=== PATIENT | male | born 1950 | race Caucasian/White ===

== ENCOUNTER → 2020-10-22 | Outpatient (CLI) | payer OTHER | LOC: CAT 11:32 | PROVIDERS: ATTEND Family Medicine | DX: Z13.6 Encounter for screening for cardiovascular disorders (principal); E78.00 Pure hypercholesterolemia, unspecified; I25.10 Atherosclerotic heart disease of native coronary artery without angina pectoris ==

== ENCOUNTER 2021-05-20 07:39 | Observation (INO) | payer BC ==
[~2021-05-20] VITALS: Ht 170.2 cm; Wt 70.3 kg
[2021-05-20] VITALS (10 sets, daily range): BP systolic 97–134; BP diastolic 52–110
[2021-05-20] MEDS ORDERED: ASA81BEC PO (12:01)
[2021-05-20] MEDS ORDERED: LORAZEPAM 1 MG T1 MG PO (12:04)
[2021-05-20] MEDS ORDERED: LOVAZA1000 MG PO (12:07)
[2021-05-20 12:09] LABS: HEMATOCRIT 41.7 % (42.0-52.0); MCH 31.4 pg (26.0-34.0); MCHC 33.7 g/dL (28.0-37.0); MCV 93.1 fL (80.0-100.0); RBC 4.47 mil/uL (4.50-6.00); RDW 13.5 % (10.5-14.5); WBC 6.4 thou/uL (4.0-11.0)
[2021-05-20 12:17] LABS: CALCIUM 8.3 mg/dL (8.5-10.1); POTASSIUM 3.8 mmol/L (3.5-5.1)
--- NOTE | 2021-05-20 12:35 | EKG ---
[place] [address] [facility] [place] [address] ELECTROCARDIOGRAM REPORT Name: IRAIDA PONCE Room #: [facility]#: [id number] Admission: 05/20/21 Attend Phys: Tunde Kwok MD Discharge: Date of : 54 Report #: [id number] [facility] Test Date: 2021-05-20 Test Time: 11:07:10 Pat Name: IRAIDA PONCE Department: Room: Gender: Anatomical Embalmer: [facility] : 1950 Requested By: Tunde Kwok Order Number: [id number] : Griffin Noguera Measurements Intervals [place] Rate: 83 P: 73 NE: 141 QRS: 53 QRSD: 79 T: 57 QT: 341 QTc: 401 Interpretive Statements Sinus rhythm Low voltage, extremity leads Abnormal R-wave progression, early transition No previous ECG available for comparison Electronically Signed On 05-20-2021 12:35:19 LEGAL RECOVERY SPECIALIST by Griffin Noguera [email or web address] <ELECTRONICALLY SIGNED> By: Griffin Noguera MD, [facility] 05/20/21 1235 1107 06 Griffin Noguera MD, FACC /EPI
[2021-05-20 18:22] LABS: HEMATOCRIT 39.7 % (42.0-52.0); HEMOGLOBIN 13.6 gm/dL (14.0-18.0); MCH 31.9 pg (26.0-34.0); MCHC 34.3 g/dL (28.0-37.0); MCV 93.2 fL (80.0-100.0); RBC 4.26 mil/uL (4.50-6.00); RDW 13.9 % (10.5-14.5); WBC 6.6 thou/uL (4.0-11.0)
[2021-05-20 18:34] LABS: CALCIUM 8.6 mg/dL (8.5-10.1); CREATININE 0.9 mg/dL (0.7-1.3); POTASSIUM 3.9 mmol/L (3.5-5.1)
--- NOTE | 2021-05-20 20:15 | NUR ---
Assumed care of pt at 1710. Pt is A&0x4, VS stable and afebrile. Groin site is C/D/I, soft with no hematoma. Pt is resting in bed. Bedrest to end at 2109; production shift supervisor nurse aware. No current concerns. Continue to monitor.
[2021-05-21 03:56] VITALS: BP 94/52
--- NOTE | 2021-05-21 04:35 | NUR ---
NURSING NOTE: SHIFT SUMMARY: PT ALERT AND ORIENTED X4; MOVES ALL EXTREMITIES AND FOLLOWS COMMANDS. RIGHT GROIN SITE DRESSING, C/D/I-NO HEMATOMA NOTED. PT DENIES PAIN. UP AD JW SINCE 2099, GAIT STEADY. CURRENTLY RESTING WITH EYES CLOSED, RESP EVEN AND NON LABORED. ALL VS AND ASSESSMENTS CHARTED. WILL CONTINUE TO MONITOR.
[2021-05-21 07:45] VITALS: BP 120/65
[2021-05-21] MEDS ORDERED: EFFIENT10 MG PO ×2 (07:48→09:03)
[2021-05-21] MEDS ORDERED: ATORVASTATIN CA10 MG PO ×2 (07:48→09:03)
[2021-05-21] MEDS ORDERED: ASPIRIN325 PO (07:48)
--- NOTE | 2021-05-21 09:40 | CATHLAB ---
[facility] [address] [address] INVASIVE PROCEDURE REPORT Name: IRAIDA PONCE Room #: 209-P ADM Brian MSarika#: [id number] Admission: 05/20/21 Attend Phys: Tunde Kwok MD Discharge: Date of : 54 Report #: [id number] THIS REPORT FOR: cc: Juan Carlos Ivan MD, Neal A. MD Park, Jin S. MD ~ APPROVED REPORT Study performed: 05/20/2021 15:49:06 Patient Details Patient Status: ED Room #: The patient is a 70 year-old male Event Personnel Tunde Kwok Marine Biologist, Mihai Darling RN RN, Jose Vitale RN RN, Janice Santos RTR Mary, Kennedi Barone Monitor Procedures Performed Art Access - R femoral artery* Left Heart Cath w/or w/o Coronaries 7461275 [facility] [address] Place w/wo Plasty Single LAD 223960 ARSALAN Place w/wo Plasty Single CIRC 732660 75949 Initial Mod Sed Same Phys/QHP Gr5y 565686 67890 Mod Sed Same Phys/QHP Ea 099265 Hemostasis w/ Mynx Indication Dyspnea, Unstable angina , Positive stress test, Chest pain Risk Factors Hypercholesterolemia, Hypertension, Tobacco History () Procedure Narrative The Right Groin^ was infiltrated with 1% Lidocaine subcutaneous anesthesia. A 6F SHEATH sheath was inserted into the RFA^. Coronary angiography was performed using coronary diagnostic catheters. The right coronary system was accessed and visualized with a JR4 catheter. The left coronary system was accessed and visualized with a JL4 catheter. The left ventricle was accessed and visualized with a ANGLE PIG catheter. Left ventriculogram was performed in 30 degree projection. There was no hematoma. Intraoperative Conscious Sedation Sedation start time: 1600 Case end Time: [facility] [address] [place] [address] INVASIVE PROCEDURE REPORT Name: IRAIDA PONCE Room #: 209-P [facility].#: [id number] Admission: 05/20/21 Attend Phys: Tunde Kwok MD Discharge: Date of : 54 Report #: [id number] 1710 Fentanyl 50 mcg Versed 1 mg Fluoro Time: 14.50 minutes Dose: DAP 57417.20 cGycm2 3759 mGy Contrast Type and Amount: Omnipaque 285 ml Coronary Angiography The patient's coronary anatomy is right dominant. Diagnostic Cath Left Main Left main artery is a short segment, patent with no flow-limiting lesions. LAD There is a severe stenosis in the ostial/proximal segment, 80 to 95%. The mid and distal LAD segments are patent with no flow-limiting lesions. The distal LAD terminates at the apex. Diagonal 1 This is a small to moderate-sized caliber vessel, with mild disease in the midsegment. Circumflex There is a severe stenosis in the proximal segment, 70%. Supplies 1 obtuse marginal artery. OM1 This is a moderate-sized caliber vessel, with mild disease in the proximal segment. Divides into 2 branches. Right Coronary The RCA is a dominant vessel with minimal plaquing in the proximal and distal segments. R PDA There is a moderate-sized caliber vessel, patent with no flow-limiting lesions. The distal segment terminates around the apex. RPLV There is a moderate-sized caliber vessel, patent with no flow-limiting lesions. Left Ventriculography The left ventricle is normal in size with normal contractility. The left ventricular ejection fraction is estimated to be >55%. Left ventricular wall motion abnormalities are present. There is mild hypokinesis of the anterolateral segment. IVUS A Guide Catheter was used to engage the VISTA 6FR XB 3.5 #258113 ostium. A CIRC Interventional Guidewire was used. A Luge Wire .014 x 182CM #[id number] was used. IVUS Findings Euphora RX 2.5 x 12 #[id number] Hemodynamics [facility] [address] [place] [address] INVASIVE PROCEDURE REPORT Name: ODALYSIRAIDA Room #: 209-P ADM IN M.R.#: [id number] Admission: 05/20/21 Attend Phys: Tunde Kwok MD Discharge: Date of : 54 Report #: [id number] The aortic pressure is 124/57 mmHg with a mean of 85 mmHg. The left ventricular pressure is 119/3 mmHg with a mean of mmHg. The left ventricular end diastolic pressure is 11 mmHg. PCI Technique Lesion Percutaneous coronary intervention was performed on the Ostial/proximal LAD segment. The lesion stenosis prior to intervention was 95% with ABBY 3 flow. A VISTA 6FR XB 3.5 #381483 Guide Catheter was used to engage the LAD ostium. A Luge Wire .014 x 182CM #137052 Interventional Guidewire was used to cross the lesion. BALLOON DILATION A Balloon catheter Euphora RX 2.5 x 12 #[id number] was inserted and inflated up to 8.00atm for 13seconds. STENT DEPLOYMENT A stent RESOLUTE TOBI RX 3.0 X 15 #[id number] was inserted and inflated up to 14.00atm for 18seconds. POST STENT DEPLOYMENT BALLOON DILATION A Balloon catheter Euphora NC RX 3.0 x 12 #[id number] was inserted and inflated up to 18.00atm for 16seconds. Final angiography reveals 0 % stenosis with ABBY 3 flow. PCI Technique Lesion A VISTA 6FR XB 3.5 #789409 Guide Catheter was used to engage the CIRC ostium. A Luge Wire .014 x 182CM #120029 Interventional Guidewire was used to cross the lesion. BALLOON DILATION A Balloon catheter Euphora RX 2.5 x 12 #[id number] was inserted and inflated up to 8.00atm for 13seconds. STENT DEPLOYMENT A stent RESOLUTE TOBI RX 2.5 X 12 #[id number] was inserted and inflated up to 14.00atm for 26seconds. POST STENT DEPLOYMENT BALLOON DILATION A Balloon catheter Euphora NC RX 3.0 x 12 #[id number] was inserted and inflated up to 18.00atm for 16seconds. PCI Technique Lesion 2 Percutaneous coronary intervention was performed on the proximal circumflex artery segment. The lesion stenosis prior to intervention [facility] [address] [place] [address] INVASIVE PROCEDURE REPORT Name: IRAIDA PONCE Room #: 209-P [facility] IN M.R.#: [id number] Admission: 05/20/21 Attend Phys: Tunde Kwok MD Discharge: Date of : 54 Report #: [id number] was 70% with ABBY 3 flow. Balloon Dilation A Balloon catheter Euphora RX 2.5 x 12 #[id number] was inserted and inflated up to 12atm for 14seconds. Stent Deployment A drug-eluting stent RESOLUTE TOBI RX 2.5 X 12 #[id number] was inserted and inflated up to 14atm for 16seconds. Final angiography reveals 0 % stenosis with ABBY 3 flow. Conclusion 1. PCI performed with placement of a drug-eluting stent into the ostial/proximal LAD segment. 2. PCI performed with placement of a drug-eluting stent into the proximal left circumflex segment. 3. The RCA is a dominant vessel with minimal plaquing. 4. There is normal LV size systolic function, with mild hypokinesis of the anterolateral segment. 5. Recommend dual antiplatelet therapy and aggressive risk factor management. <ELECTRONICALLY SIGNED> By: Tunde Kwok MD 05/21/21939 9 9 Tunde Kwok MD /INF
[2021-05-21 10:14] VITALS: BP 120/65
--- NOTE | 2021-05-21 11:21 | NUR ---
Pt A&0X4, VS stable and afebrile. Groin site continues to be C/D/I, soft with no hematoma. Pt recieved education from cardiac rehab nurse. Discharge education and f/u appointment information provided to pt and pt reported understanding of information. Pt stated that he was okay to drive himself home; cleared with cupola charger. No current concerns.
== END 2021-05-21 12:06 | disposition admitted as inpatient to this hospital (09) ==
LOC: SJCVCIMAG 07:39 → 2N 17:38
PROVIDERS: ADMIT Internal Medicine Cardiovascular Disease; ATTEND Internal Medicine Cardiovascular Disease
DX: I25.110 Atherosclerotic heart disease of native coronary artery with unstable angina pectoris (principal); R06.00 Dyspnea, unspecified; I10 Essential (primary) hypertension; E78.5 Hyperlipidemia, unspecified; F41.9 Anxiety disorder, unspecified; Z87.891 Personal history of nicotine dependence; Z79.899 Other long term (current) drug therapy

== ENCOUNTER → 2021-05-26 | Outpatient (CLI) | payer BC ==
[~2021-05-26] MED LIST: ASA81BEC PO; ASPIRIN325 PO; ATORVASTATIN CA10 MG PO; EFFIENT10 MG PO; LORAZEPAM 1 MG T1 MG PO; LOVAZA1000 MG PO
== END ==
LOC: SJCVCIMAG 13:17
PROVIDERS: ATTEND Internal Medicine Cardiovascular Disease
DX: R10.31 Right lower quadrant pain (principal); R22.9 Localized swelling, mass and lump, unspecified